=== PATIENT | male | born 1965 | race Hispanic/Latino ===

== ENCOUNTER → 2021-02-03 | Outpatient (CLI) | payer BC | END | disposition home or self-care (01) | LOC: SHCH 15:24 | PROVIDERS: ATTEND Internal Medicine Cardiovascular Disease | DX: R06.02 Shortness of breath (principal) | CPT/HCPCS: 93306; 93356 ==

== ENCOUNTER → 2021-02-05 | Outpatient (CLI) | payer BC ==
[~2021-02-05] MED LIST: IOHEXOL-350 75 ML VIAL IV ONE
== END | disposition home or self-care (01) ==
LOC: RAH 08:20
PROVIDERS: ATTEND Internal Medicine Cardiovascular Disease
DX: R06.02 Shortness of breath (principal)
CPT/HCPCS: 75574; Q9967 ×2

== ENCOUNTER → 2021-02-26 | Outpatient (CLI) | payer BC ==
[2021-02-26 09:12] LABS: CREATININE 1.1 mg/dL (0.5-1.5)
== END | disposition home or self-care (01) ==
LOC: LAB 08:43
PROVIDERS: ATTEND Internal Medicine Cardiovascular Disease
DX: K44.9 Diaphragmatic hernia without obstruction or gangrene (principal); R06.02 Shortness of breath; K76.0 Fatty (change of) liver, not elsewhere classified
CPT/HCPCS: 36415; 75574; 82565; 84520

== ENCOUNTER 2021-05-26 14:45 | Emergency (ER) | payer BC ==
[~2021-05-26] VITALS: Ht 180.3 cm; Wt 88.5 kg
[2021-05-26 14:48] VITALS: BP 158/86
[2021-05-26] MEDS ORDERED: HYDROCODONE/ACETAMINOPHEN 5/325 MG TAB PO STA (15:35)
[2021-05-26] MEDS ORDERED: CEFTRIAXONE 1G VIAL IM STA (15:35)
[2021-05-26 16:17] LABS: BASOPHILS % (AUTO) 0.7 % (0.0-5.0); EOSINOPHILS % (AUTO) 2.5 % (0.0-8.0); HEMATOCRIT 41.8 % (42-54); LYMPHOCYTES % (AUTO) 14.9 % (21.0-51.0); MEAN CORPUSCULAR HEMOGLOBIN 30.3 pg (27.0-33.0); MEAN CORPUSCULAR VOLUME 89.1 fL (79-99); MONOCYTES % (AUTO) 15.4 % (3.0-13.0); NEUTROPHILS % (AUTO) 66.2 % (40.0-77.0); PLATELET COUNT (AUTO) 187 K/uL (130-400); RED BLOOD CELL COUNT(AUTO) 4.69 MIL/uL (4.50-6.20); RED CELL DISTRIBUTION WIDTH 13.6 % (11.0-15.5)
[2021-05-26] MEDS ORDERED: LIDOCAINE HCL-MPF 1% 2ML VIAL ONE (16:29)
[2021-05-26 16:45] LABS: CREATININE 1.2 mg/dL (0.5-1.5); POTASSIUM 3.5 mmol/L (3.5-5.1)
[2021-05-26 16:52] LABS: ALBUMIN 4.2 g/dL (3.5-5.0); BILIRUBIN,DIRECT 0.1 mg/dL (0.0-0.3); BILIRUBIN,TOTAL 0.3 mg/dL (0.2-1.0); CRP QUANTITATIVE 4.6 mg/L (0.00-9.0); TOTAL PROTEIN, SERUM 7.5 g/dL (6.0-8.3)
[2021-05-26 17:08] VITALS: BP 127/72
[2021-05-26 17:18] LABS: ABG BASE EXCESS -0.9 mmol/L (-2.0-3.0); ABG HCO3 22.1 mmol/L (21.0-28.0); ABG OXYGEN SATURATION 94.8 % (95.0-99.0); ABG PCO2 33 mmHg (35-48)
[2021-05-26 17:26] LABS: ERYTHROCYTE SEDIMENTATION RATE 2 MM/HR (0-20)
[2021-05-26] MEDS ORDERED: AZIT1PAC PO (17:27)
[2021-05-26] MEDS ORDERED: IBUP-2088 PO (17:27)
[2021-05-26] MEDS ORDERED: ALBU8.5H8 IH (17:27)
== END 2021-05-26 18:27 | disposition home or self-care (01) ==
LOC: EDH 14:45
DX: U07.1 COVID-19 (principal); R50.9 Fever, unspecified; I10 Essential (primary) hypertension; F17.200 Nicotine dependence, unspecified, uncomplicated; Z79.1 Long term (current) use of non-steroidal anti-inflammatories (NSAID); Z79.899 Other long term (current) drug therapy; Z90.49 Acquired absence of other specified parts of digestive tract
CPT/HCPCS: 36415; 36600; 71045; 80053; 80076; 82550; 82803; 83605; 83615; 84484; 85025; 85378; 85651; 86140; 93005; 96372; 99284; J0696; J3490